=== PATIENT | female | born 1995 | race American Indian/Alaskan Native ===

== ENCOUNTER 2021-03-19 06:09 | Emergency (ER) | payer BC ==
[2021-03-19 07:23] LABS: CORONAVIRUS COVID-19 NAA POSITIVE (NEGATIVE)
== END 2021-03-19 07:43 | disposition home or self-care (01) ==
LOC: JP.ED 06:09
DX: U07.1 COVID-19 (principal); F17.210 Nicotine dependence, cigarettes, uncomplicated
CPT/HCPCS: 0241U; 99283

== ENCOUNTER 2021-04-16 20:08 | Emergency (ER) | payer BC, OTHER ==
[2021-04-16] MEDS: Albuterol/Ipratropium 3.0-0.5 MG/3 ML Neb Soln NEB ONE (20:53)
== END 2021-04-16 21:26 | disposition home or self-care (01) ==
LOC: JP.ED 20:08
DX: J45.21 Mild intermittent asthma with (acute) exacerbation (principal); Z86.16 Personal history of COVID-19; Z72.0 Tobacco use
CPT/HCPCS: 94640; 99282; 99284-25; J7620-GY

== ENCOUNTER 2021-07-26 16:52 | Emergency (ER) | payer OTHER | END 2021-07-26 19:04 | disposition home or self-care (01) | LOC: JP.ED 16:52 | DX: S20.211A Contusion of right front wall of thorax, initial encounter (principal); J45.909 Unspecified asthma, uncomplicated; Z86.16 Personal history of COVID-19; V80.010A Animal-rider injured by fall from or being thrown from horse in noncollision accident, initial encounter | CPT/HCPCS: 71046; 71046-26; 99282; 99284-25 ==